=== PATIENT | female | born 1970 | race African-American/Black ===

== ENCOUNTER 2017-01-16 15:14 | Emergency (ER) | payer MEDICARE, OTHER ==
[~2017-01-16] VITALS: Ht 160 cm; Wt 108.4 kg
[2017-01-16 15:25] VITALS: BP 161/74
--- NOTE | 2017-01-16 15:44 | RAD ---
Exam: Left ankle radiograph 01/16/2017 at 1518 hours Indication: Twisted left ankle. Swelling and medial malleolus. Comparison: None available Technique: 3 views of the left ankle are provided. Findings: There is no acute fracture or dislocation. Tibial plafond and talar dome are intact. Ankle mortise is congruent. There is a plantar calcaneal enthesophyte. No joint space narrowing. Moderate medial soft tissue swelling. No osseous erosion or soft tissue gas. Bone mineralization is within normal limits. Impression: Soft tissue swelling, more prominent medially without underlying acute fracture or dislocation.
--- NOTE | 2017-01-16 16:14 | PHYS DOC ---
Past Medical History Past Medical History: Asthma, GERD, Hypertension Past Surgical History: Cholecystectomy, Hysterectomy, Other Additional Past Surgical Histo: OVARIAN CYSTS Alcohol Use: Rarely Drug Use: None Adult General Chief Complaint Chief Complaint: ANKLE PROBLEM HPI HPI Patient is a 46 year old female with history of hypertension who presents today with moderate left lower extremity pain after falling down one week ago. Patient denies any loss of consciousness. Review of Systems Review of Systems Constitutional: Denies fever or chills [] Musculoskeletal: Left lower extremity pain Integument: Denies rash or skin lesions [] Neurologic: Denies headache, focal weakness or sensory changes [] Current Medications Current Medications Current Medications Medications (Trade) Dose Ordered Sig/Aldo Start Time Stop Time Status Last Admin Dose Admin Acetaminophen (Tylenol) 500 mg 1X ONCE 01/16/17 16:30 01/16/17 16:31 UNV Allergies Allergies Allergies Coded Allergies Type Severity Reaction Last Updated Verified No Known Drug Allergies 07/25/15 No Physical Exam Physical Exam Constitutional: Well developed, well nourished, no acute distress, non-toxic appearance. [] Skin: Warm, dry, no erythema, no rash. [] Back: No tenderness, no CVA tenderness. [] Extremities: Left ankle with moderate soft tissue swelling. Tenderness diffusely on the left medial and lateral ankle. Full range of motion to the left ankle and foot. +2 left pedal pulse. Cap refill less than 2 seconds and left lower extremity. Sensation intact to the left lower extremity. Neurologic: Alert and oriented X 3, normal motor function, normal sensory function, no focal deficits noted. [] Psychologic: Affect normal, judgement normal, mood normal. [] Current Patient Data Vital Signs Vital Signs Date Time Temp Pulse Resp B/P (MAP) Pulse Ox O2 Delivery O2 Flow Rate FiO2 01/16/17 15:25 98.6 73 16 98 Room Air 98.6 EKG EKG [] Radiology/Procedures Radiology/Procedures []PROCEDURE: FOOT LEFT 3V Left foot, 3 views, 01/16/2017: History: Fall, pain No acute fracture or dislocation is identified. There is a moderate sized inferior calcaneal spur. There is moderate subcutaneous edema about the foot. IMPRESSION: No acute bony abnormality is detected. DICTATED and SIGNED BY: SHRUTHI LIN MD DATE: 01/16/17 7581 CC: MESERET RUIZ MD; HUE MENDOZA APRN ~ PROCEDURE: TIBIA FIBULA LEFT Left tibia and fibula, 2 views, 01/16/2017: History: Leg pain after a fall Views of the proximal tibia and fibula were obtained and correlated with ankle radiographs from earlier in the day. No fracture is identified. There is mild subcutaneous edema. IMPRESSION: No acute bony abnormality is detected. DICTATED and SIGNED BY: SHRUTHI LIN MD DATE: 01/16/17 1616 CC: MESERET RUIZ MD; HUE MENDOZA APRN ~ PROCEDURE: ANKLE LEFT 3V Exam: Left ankle radiograph 01/16/2017 at 1518 hours Indication: Twisted left ankle. Swelling and medial malleolus. Comparison: None available Technique: 3 views of the left ankle are provided. Findings: There is no acute fracture or dislocation. Tibial plafond and talar dome are intact. Ankle mortise is congruent. There is a plantar calcaneal enthesophyte. No joint space narrowing. Moderate medial soft tissue swelling. No osseous erosion or soft tissue gas. Bone mineralization is within normal limits. Impression: Soft tissue swelling, more prominent medially without underlying acute fracture or dislocation. DICTATED and SIGNED BY: BUCKY MUSE MD DATE: 01/16/17 1540 CC: MESERET RUIZ MD; HUE MENDOZA APRN ~ Course & Med Decision Making Course & Med Decision Making Pertinent Labs and Imaging studies reviewed. (See chart for details) Patient is in the ED with left lower extremity pain after falling a week ago. Left ankle x-rays 3, left foot xrays views and left tib/fib 2 views interpreted by radiologist was negative for any acute findings. Patient probably sprained her left ankle when she fell. Yovanny wrap applied to the left ankle by the civil technician, neurovascular exam is normal. Ice elevation encouraged. Discharged with diclofenac. Follow-up with PCP or the provided orthopedic doctor in a week if pain continues. Dragon Disclaimer Dragon Disclaimer This electronic medical record was generated, in whole or in part, using a voice recognition dictation system. Departure Departure Impression: Primary Impression: Fall from standing Additional Impression: Left ankle sprain Disposition: HOME, SELF-CARE Condition: STABLE Referrals: MESERET RUIZ MD (PCP) RONNIE GASTON II, MD Follow-up in one week Patient Instructions: Ankle Sprain, Fall Prevention and Home Safety Additional Instructions: You were seen for left ankle sprain after falling. Ice and elevate the extremity. Wear the Yovanny wrap provided as tolerated. Take the prescribed pain medicine as needed for pain. Follow-up with the provided orthopedic doctor your own doctor in one week if pain continues. Scripts Diclofenac Sodium (DICLOFENAC SODIUM) 50 Mg Tablet.dr 1 TAB PO BID, #20 TAB 0 Refills Prov: HUE MENDOZA APRN 01/16/17 Problem Qualifiers Primary Impression: Fall from standing Encounter type: initial encounter Qualified Codes: W19.XXXA - Unspecified fall, initial encounter Additional Impression: Left ankle sprain Encounter type: initial encounter Involved ligament of ankle: unspecified ligament Qualified Codes: S93.402A - Sprain of unspecified ligament of left ankle, initial encounter HUE MENDOZA SCRUM MASTER Jan 16, 2017 16:14
--- NOTE | 2017-01-16 16:20 | RAD ---
Left tibia and fibula, 2 views, 01/16/2017: History: Leg pain after a fall Views of the proximal tibia and fibula were obtained and correlated with ankle radiographs from earlier in the day. No fracture is identified. There is mild subcutaneous edema. IMPRESSION: No acute bony abnormality is detected.
--- NOTE | 2017-01-16 16:21 | RAD ---
Left foot, 3 views, 01/16/2017: History: Fall, pain No acute fracture or dislocation is identified. There is a moderate sized inferior calcaneal spur. There is moderate subcutaneous edema about the foot. IMPRESSION: No acute bony abnormality is detected.
[2017-01-16] MEDS ORDERED: DICL50TA4 PO (16:31)
[2017-01-16] MEDS ORDERED: ACETAMINOPHEN 500 MG TABLET PO ONE (17:00)
== END 2017-01-16 16:34 | disposition home or self-care (01) ==
LOC: ER 15:14
DX: S93.402A Sprain of unspecified ligament of left ankle, initial encounter (principal); J45.909 Unspecified asthma, uncomplicated; I10 Essential (primary) hypertension; K21.9 Gastro-esophageal reflux disease without esophagitis; W18.39XA Other fall on same level, initial encounter; Y93.89 Activity, other specified; Y92.89 Other specified places as the place of occurrence of the external cause; Y99.8 Other external cause status
CPT/HCPCS: 73590; 73610; 73630; 99284